=== PATIENT | female | born 2000 | race Caucasian/White ===

== ENCOUNTER 2021-07-10 18:58 | Emergency (ER) | payer MEDICAID ==
[~2021-07-10] VITALS: Ht 175.3 cm; Wt 64.0 kg
[2021-07-10] MEDS ORDERED: PREDNISONE 20MG TABLET PO ONE (20:15)
[2021-07-10 20:57] VITALS: BP 130/82
[2021-07-10] MEDS ORDERED: DIPH25CA83 MT (21:13)
[2021-07-10] MEDS ORDERED: EPIN0.3P3 IM (21:13)
[2021-07-10] MEDS ORDERED: P50 MT (21:13)
[2021-07-10] MEDS ORDERED: FAMO20TA8 MT (21:13)
== END 2021-07-10 20:55 | disposition home or self-care (01) ==
LOC: ER 18:58
DX: T78.40XA Allergy, unspecified, initial encounter (principal); E78.00 Pure hypercholesterolemia, unspecified; R00.0 Tachycardia, unspecified; Z88.1 Allergy status to other antibiotic agents; X58.XXXA Exposure to other specified factors, initial encounter
CPT/HCPCS: 99283; J7512